=== PATIENT | female | born 1945 | race Caucasian/White ===

== ENCOUNTER 2022-07-05 11:06 | Observation (INO) | payer MEDICARE, SELFPAY ==
[2022-07-05] VITALS (29 sets, daily range): BP systolic 130–183; BP diastolic 52–75; PULSE 59–79; RESP 7–21; TEMP 35.8–36.3; O2SAT 81–100; BMI 27.8
--- NOTE | ~2022-07-05 | XR_ITS ---
EXAMINATION: XR chest 2V DATE: 07/05/2022 11:56 INDICATION: Chest pain. Epigastric abdominal pain. TECHNIQUE: Frontal and lateral views of the chest were obtained. COMPARISON: None. FINDINGS: A calcified left lung nodule and calcified left hilar lymph nodes are consistent with old g ranulomatous disease. No pleural effusion or pneumothorax. The heart size is normal. IMPRESSION: 1. No acute cardiopulmonary disease. Reviewed, dictated and finalized at location A.
--- NOTE | ~2022-07-05 | US_ITS ---
US abdomen limited INDICATION: Acute cholecystitis PROCEDURE: Realtime right upper abdominal ultrasound. COMPARISON: No prior studies for comparison. FINDINGS: The pancreas is normal without focal mass or pancreatic ductal dilation. Liver echotexture is normal without focal mass or intrahepatic biliary dilatation. There is normal directional flow i n the portal vein. There are gallstones. No gallbladder wall thickening or pericholecystic fluid. Common bile duct measu res [address]'s sign. IMPRESSION: 1: Cholelithiasis. Reviewed, dictated and finalized at location A. IMPRESSION: 1: Cholelithiasis.
--- NOTE | ~2022-07-05 | CT_ITS ---
Clinical Indication: Chest pain, abdominal pain CT Scan of the Chest, Abdomen, and Pelvis with Contrast: Technique: Contiguous sections were acquired throughout the chest, abdomen, and pelvis after intraven ous administration of 100 cc of Omnipaque 350. Dose reduction technique was used on this scan by lisa mariscal automated exposure control and iterative reconstruction technique. The dose-length product (DL P) was 527.03 mGy-cm. Findings: There is no evidence of any significant mediastinal, hilar or axillary lymphadenopathy. Calcified sub carinal lymph nodes and left hilar lymph nodes noted. No central pulmonary embolus seen. No aortic a neurysm or dissection seen. There is no evidence of pleural or pericardial effusion. The lungs are clear, aside from minimal dependent atelectatic change. There is mild intrahepatic biliary dilatation. The liver, spleen, pancreas, adrenals and kidneys are otherwise within normal limits. Multiple calcified gallstones are present. No evidence of aortic aneu rysm. There are atherosclerotic calcifications of the aorta. No lymphadenopathy. No bowel obstruction or bowel wall thickening. There is no evidence to suggest acute appendicitis. Urinary bladder is unremarkable. No adnexal mass seen. No ascites. Bilateral L5 pars interarticularis defects are present, with 12 mm anterolisthesis of L5 over S1. Impression: Cholelithiasis. There is a prominent gallstone at the gallbladder neck, but no definite gallbladder w all thickening seen. If there is clinical concern for acute cholecystitis, then consider HIDA scan fo r further evaluation. Mild intrahepatic biliary dilatation, nonspecific. Bilateral L5 pars interarticularis defects, with 12 mm anterolisthesis of L5 over S1. No pulmonary embolus. Clear lungs. Reviewed, dictated and finalized at [facility]. Impression: Cholelithiasis. There is a prominent gallstone at the gallbladder neck, but no definite gallbladder wall thickening seen. If there is clinical concern for acu te cholecystitis, then consider HIDA scan for further evaluation. Mild intrahepatic biliary dilatation, nonspecific. Bilateral L5 pars interarticularis defects, with 12 mm anterolisthesis of L5 ov er S1. No pulmonary embolus. Clear lungs.
--- NOTE | 2022-07-05 11:23 | ECG_ITS ---
Measurements Intervals [place] Rate: 63 P: 47 TN: 159 QRS: 6 QRSD: 101 T: 65 QT: 365 QTc: 375 Interpretive Statements SINUS RHYTHM BORDERLINE ST-T WAVE ABNORMALITY- HIGH LATERAL LEADS BASELINE ARTIFACT- I, AVR, V6 BORDERLINE ECG NO PREVIOUS ECG AVAILABLE FOR COMPARISON Electronically Signed On 07-05-2022 11:58:41 CDT by Gildardo Vargas D.O.
--- NOTE | 2022-07-05 11:37 | ED.ABDPAIN ---
HPI - Abdominal Pain General Chief Complaint: Abdominal Pain Stated Complaint: epigastric/upper adbominal pain Time Seen by Provider: 07/05/22 11:36 Source: patient Mode of arrival: ambulatory Limitations: no limitations History of Present Illness HPI narrative: Patient is a 76-year-old female with a history of hypertension, hyperlipidemia, presenting to the emergency department for evaluation of epigastric pain. Patient reports severe epigastric pain with radiation to the middle back. She denies associated upper chest pain or shortness of breath. No cough or hemoptysis. No nausea or vomiting. Patient states that she awakened acutely at 1 AM with the pain. No recent food indiscretions, patient states that she ate chicken last night after dinner. No diarrhea or constipation. Patient also reports lower abdominal discomfort as well. She denies dysuria or hematuria. Patient denies history of pain such as this in the past. History obtained from patient and at bedside. Related Data Home Medications Medication Instructions Recorded Confirmed calcium carbonate 500 mg calcium 500 mg PO DAILY 03/06/21 07/11/21 (1,250 mg) tablet (Calcium 500) multivitamin 1 tablet PO DAILY 03/06/21 07/11/21 omega 9-gch-goz-fish oil 100 cap PO 03/06/21 07/11/21 mg-160 mg-1,000 mg capsule (Fish Oil) Bacillus coagulans 800 million 1 cell PO .QD 07/11/21 07/11/21 cell tablet (Digestive Advantage Probiotics-Prebiotic) Lactobacillus acidophilus 10 60,000 mmu cells PO DAILY 07/11/21 07/11/21 billion cell capsule (Probiotic) cholecalciferol (vitamin D3) 50 50 mcg PO BID 07/11/21 07/11/21 mcg (2,000 unit) capsule Allergies Allergy/AdvReac Type Severity Reaction Status Date / Time alendronate sodium Allergy Intermediate ACHY Verified 07/05/22 12:33 SWELLING IN ALL AREAS AFFECTED BY ARTHRITIS Review of Systems Review of Systems: CONSTITUTIONAL: Denies fever, chills, or sweats. EYES: Denies visual changes, redness, or discharge. ENT: Denies rhinorrhea, congestion, sore throat, or otalgia. CARDIOVASCULAR: Denies chest pain, palpitations, or edema. RESPIRATORY: Denies cough or dyspnea. GASTROINTESTINAL: Reports upper abdominal pain, denies nausea, vomiting or diarrhea GENITOURINARY: Denies dysuria or hematuria. SKIN: Denies rash or itching. MUSCULOSKELETAL: Reports middle back pain without other joint pain, or myalgia. NEUROLOGIC: Denies headache, numbness, or weakness. [facility] Past Medical History Medical History Age related osteoporosis Bilateral primary osteoarthritis of knee Essential (primary) hypertension Gastro-esophageal reflux disease without esophagitis History of breast cancer 1998, lumpectomy with radiation therapy Impaired fasting glucose Knee effusion, right Left knee DJD Normal colonoscopy 10/05 Repeat 10/15 Pure hypercholesterolemia, unspecified Right knee DJD Surgical History Surgical History History of section, classical History of lumpectomy Lt breast which was benign Family History Family History Father Acute myocardial infarction Depression HLD (hyperlipidemia) Heart disease Other Diabetes mellitus Daughter Diabetes mellitus Breast cancer Other Colon polyp Hypertension Social History Social History Smoking packs per day: 0.5 Smoking cigarettes per day: 10.0 Years smoked: 5 Smoking pack-years: 2.50 Smoking status: Never smoker Second hand tobacco smoke exposure: No Smoking end date: 07/22/82 Additional smoking assessment comments: quit 1974 Alcohol intake: current Drinks per week: 3 Substance use: never Substance use type: does not use Living arrangements: with family Occupation/
[2022-07-05 11:40] LABS: Basophils Percent Auto 0.2 % (0.2-1.2); Eosinophils Percent Auto 0.2 % (0-4.4); Hematocrit 42.8 % (37.0-47.0); Immature Granulocyte Percent A 0.8 % (0-0.5); Lymphocytes Absolute Auto 1.52 K/mm3 (0.9-3.2); Mean Corpuscular Hemoglobin 32.1 pg (26-34); Mean Corpuscular Volume 91.6 fl (80-100); Mean Platelet Volume 8.8 fl (7.4-10.4); Monocytes Absolute Auto 0.7 K/mm3 (0.1-0.6); Monocytes Percent Auto 5.3 % (2.6-8.5); Neutrophils Absolute Auto 10.4 K/mm3 (1.3-6.7); Neutrophils Percent Auto 81.5 % (45.5-73.1); Platelet Count Result 232 k/mm3 (150-375); Red Blood Count 4.67 M/mm3 (4.2-5.4); Red Cell Distribution Width 11.7 % (11.5-14.5); White Blood Count 12.7 K/mm3 (4.5-10.0)
[2022-07-05 11:49] LABS: Alanine Aminotransferase 31 U/L (6-35); Albumin Level 5.4 g/dL (3.5-5.1); Alkaline Phosphatase 75 U/L (38-126); Anion Gap 8 mmol/L (8-16); Aspartate Amino Transferase 27 U/L (14-36); Bilirubin,Total 0.7 mg/dL (0.2-1.3); Blood Urea Nitrogen 15 mg/dL (7-17); Calcium 9.9 mg/dL (8.4-10.2); Carbon Dioxide 32 mmol/L (22-30); Chloride 91 mmol/L (98-107); Estimated CRCL calculation 87 ml/min; Estimated Glomerular Filt Rate > 60; Glucose 143 mg/dL (65-110); Lipase 125 U/L (23-300); Potassium 3.8 mmol/L (3.4-5.0); Sodium 131 mmol/L (137-145)
[2022-07-05 11:51] LABS: INR 0.9
[2022-07-05 11:52] LABS: Partial Thromboplastin Time 27.2 SECONDS (22.3-36.8)
[2022-07-05 12:00] LABS: Troponin I < 0.012 ng/mL (0.000-0.034)
[2022-07-05] MEDS: SODIUM CHLORIDE 0.9% IV 1,000 ML 999 ML IV CONT (12:33)
[2022-07-05] MEDS: ONDANSETRON INJ 4 MG/2 ML VIAL IV PUSH (12:34)
[2022-07-05] MEDS: MAG HYDROX/AL HYDROX/SIMETH 30 ML UDC PO (12:35)
[2022-07-05] MEDS: FAMOTIDINE 20 MG/2 ML VIAL IV PUSH (12:35)
[2022-07-05] MEDS: MORPHINE SULFATE (*CRX) 4 MG/ML INJ IV PUSH (12:35)
[2022-07-05 13:00] LABS: Lactic Acid Reflex 0.6 mmol/L (0.7-2.0)
--- NOTE | 2022-07-05 13:17 | PC.NURSE ---
Pt O2 dropping into the 80s. Placed pt on 2L NC at this time
--- NOTE | 2022-07-05 14:58 | PM.IMHP ---
H&P: HPI History of Present Illness Date/Time: 07/05/22 14:58 Chief Complaint: Epigastric abdominal pain Narrative: This is a 76-year-old woman with a history of hypertension, hyperlipidemia, and GERD, who presented to the ER today with complaints of epigastric abdominal pain starting early this morning. She reports eating fried chicken last night for dinner and went to bed feeling in her normal state of health. She woke up suddenly from sleep around 1:00 a.m. with epigastric abdominal pain. She does have a history of acid reflux and thought this could be the cause of her pain, so she tried taking some of her eamy-djs-tyaivbt medication, but had no relief. Her abdominal pain became more severe and started to radiated across her entire upper abdomen underneath her ribs bilaterally. She denies ever having this pain in the past. She had a small bowel movement without relief in her pain. She tried to make herself vomit to see if this would help, but again had no relief. Due to the unrelenting pain, she presented to the ER today for evaluation. [place] [id number], normal LFTs, negative troponin, and labs were otherwise unremarkable. EKG without any ischemic changes. Chest x-ray negative. CT with contrast of the chest abdomen and pelvis was subsequently ordered and showed cholelithiasis with a prominent gallstone at the gallbladder neck but no definite gallbladder wall thickening. Also noted was mild intrahepatic biliary dilation, no pulmonary embolism. Our service was consulted by the ED physician. She is now seen in the ER. She reports having some improvement in her abdominal pain after receiving the IV morphine in the ER, but her pain has began to slowly intensify again as the medication has worn off. No other complaints at this time. She has had 3 previous deliveries and a tubal ligation in the past. No other abdominal surgeries. She denies ever having pain like this in the past or having any known issues with her gallbladder. Review of Systems Review of Systems: All systems reviewed & are unremarkable except as noted in HPI and below Constitutional: Constitutional: Reports no additional constitutional complaints, Denies chills, Denies fatigue, Denies fever(s) and Denies poor appetite Eyes: Eyes: Reports no additional eye complaints ENT: Reports system reviewed and no additional complaints, except as documented and Denies dizziness Cardiovascular: Cardiovascular: Reports no additional cardiovascular complaints, Denies chest pain and Denies leg edema Respiratory: Respiratory: Reports no additional respiratory complaints, Denies cough and Denies dyspnea Gastrointestinal: Gastrointestinal: Reports as per HPI, Reports no additional gastrointestinal complaints, Reports abdominal pain, Denies change in bowel habits, Denies change in stool character, Denies constipation, Denies diarrhea, Denies nausea and Denies vomiting Genitourinary: Genitourinary: Reports no additional female genitourinary complaints and Denies dysuria Musculoskeletal: Musculoskeletal: Reports no additional musculoskeletal complaints, Denies abnormal gait and Denies joint swelling Integumentary/Breasts: Skin/Breast: Reports system reviewed and no additional complaints, except as docu Neurologic: Reports system reviewed and no additional complaints, except as documented, Denies headache(s), Denies focal weakness, Denies numbness and Denies tingling PMFSH Past Medical History Medical History Age related osteoporosis Bilateral primary osteoarthritis of knee Essential (primary) hypertension Gastro-esophageal reflux disease without esophagitis History of breast cancer 1998, lumpectomy with radiation therapy Impaired fasting glucose Knee effusion, right Left knee DJD Normal colonoscopy 10/05 Repeat 10/15 Pure hypercholesterolemia, unspecified Right knee DJD Surgical Hist
[2022-07-05 15:09] LABS: Troponin I < 0.012 ng/mL (0.000-0.034)
[2022-07-05] MEDS: LACTATED RINGERS 1,000 ML 125 ML IV CONT (16:04)
[2022-07-05] MEDS: PIPERACILLN/TAZ 3.375GM/NS50ML 3.375 GM/50 ML BAG IVPB ×2 (16:19→23:19)
[2022-07-05 18:43] LABS: Troponin I < 0.012 ng/mL (0.000-0.034)
[2022-07-06] MEDS: PIPERACILLN/TAZ 3.375GM/NS50ML 3.375 GM/50 ML BAG IVPB ×2 (01:03→10:01)
[2022-07-06] MEDS: LACTATED RINGERS 1,000 ML 125 ML IV CONT (05:24)
[2022-07-06 06:00] VITALS: BP 151/89; PULSE 85; RESP 16; TEMP 35.9; O2SAT 97
[2022-07-06 07:03] LABS: Basophils Percent Auto 0.6 % (0.2-1.2); Eosinophils Percent Auto 0.6 % (0-4.4); Hemoglobin 13.4 g/dL (12.0-15.0); Immature Granulocyte Absolute 0.01 K/mm3 (0.00-0.031); Immature Granulocyte Percent A 0.2 % (0-0.5); Lymphocytes Absolute Auto 2.38 K/mm3 (0.9-3.2); Lymphocytes Percent Auto 37.8 % (18.3-44.2); Mean Corpuscular HGB Conc 34.4 g/dl (32-36); Mean Corpuscular Hemoglobin 32.5 pg (26-34); Mean Corpuscular Volume 94.7 fl (80-100); Mean Platelet Volume 8.9 fl (7.4-10.4); Monocytes Absolute Auto 0.5 K/mm3 (0.1-0.6); Monocytes Percent Auto 7.6 % (2.6-8.5); Neutrophils Absolute Auto 3.3 K/mm3 (1.3-6.7); Neutrophils Percent Auto 53.2 % (45.5-73.1); Platelet Count Result 196 k/mm3 (150-375); Red Blood Count 4.12 M/mm3 (4.2-5.4); Red Cell Distribution Width 11.8 % (11.5-14.5); White Blood Count 6.3 K/mm3 (4.5-10.0)
[2022-07-06 07:33] LABS: Alanine Aminotransferase 24 U/L (6-35); Albumin Level 4.1 g/dL (3.5-5.1); Alkaline Phosphatase 49 U/L (38-126); Anion Gap 3 mmol/L (8-16); Aspartate Amino Transferase 20 U/L (14-36); Bilirubin,Total 0.7 mg/dL (0.2-1.3); Blood Urea Nitrogen 9 mg/dL (7-17); Carbon Dioxide 33 mmol/L (22-30); Chloride 97 mmol/L (98-107); Estimated CRCL calculation 71 ml/min; Estimated Glomerular Filt Rate > 60; Glucose 91 mg/dL (65-110); Potassium 3.9 mmol/L (3.4-5.0); Sodium 133 mmol/L (137-145)
--- NOTE | 2022-07-06 12:16 | PM.DS ---
DS: Admitting Diagnosis Discharge Date 07/06/2022 Admitting Diagnosis Cholecystitis with gallstones DS: Discharge Diagnosis Discharge Diagnosis (1) Cholelithiasis with chronic cholecystitis: Code(s): K80.10 - Calculus of gallbladder with chronic cholecystitis without obstruction Status: Acute DS: Summary Hospital Course Hospital Course: Patient ate fried chicken for supper night before last and then was awakened at 1:00 a.m. in the morning on the day of admission with excruciating epigastric abdominal pain that would not resolve. She eventually came to the emergency room. Her liver function tests were unremarkable. Imaging showed gallstones. She initially improved in the ER but then her pain returned. She was admitted for observation. Fortunately her pain then resolved. She had both an ultrasound and a CT scan that showed gallstones but no signs of acute cholecystitis. She was observed overnight and was tolerating a low-fat diet. She is pain-free today and is discharged on a low-fat diet with plans for laparoscopic cholecystectomy to be done as an outpatient in the future. Status at Discharge Functional status at discharge: independent ambulation Overall status at discharge: patient is progressing back to baseline Time Spent with Patient Time attestation: Total time spent providing and/or coordinating discharge services: Time spent: Less than 30 minutes Exam Const: General: comfortable and no acute distress; No confusion Orientation/consciousness: patient oriented x3 and No confusion GI: Inspection: non-distended and scaphoid GI Palp: Yes Soft to palpation, No Tenderness to palpation present (GI), No Guarding due to palpation present (GI) and No Rebound tenderness present Auscultation: normal bowel sounds Neuro: General: patient oriented x3, no focal motor deficits and No confusion Extrem: General: no calf tenderness and no edema Psych: Affect: normal affect Insight: Good insight present (Psych) Judgement: Good judgement present (Psych) DS: Data Data Completed and Pending Labs on day of discharge: Labs from last 24 hours 07/06/22 07/06/22 07/05/22 06:50 06:50 17:44 WBC 6.3 RBC 4.12 L Hgb 13.4 Hct 39.0 MCV 94.7 MCH 32.5 MCHC 34.4 RDW 11.8 Plt Count 196 MPV 8.9 Immature Gran % (Auto) 0.2 Neut % (Auto) 53.2 Lymph % (Auto) 37.8 Williamson % (Auto) 7.6 Eos % (Auto) 0.6 Baso % (Auto) 0.6 Lymph # (Auto) 2.38 Williamson # (Auto) 0.5 Eos # (Auto) 0.0 Baso # (Auto) 0.0 Abs Immat Gran (auto) 0.01 Absolute Neuts (auto) 3.3 Absolute Nucleated RBC 0.0 Nucleated RBC % 0.0 Sodium 133 L Potassium 3.9 Chloride 97 L Carbon Dioxide 33 H Anion Gap 3 L BUN 9 D Creatinine 0.50 L Estim Creat Clear Calc 71 Estimated GFR > 60 Glucose 91 Lactic Acid Calcium 9.0 Total Bilirubin 0.7 AST 20 ALT 24 Alkaline Phosphatase 49 Troponin I < 0.012 Total Protein 6.0 L Albumin 4.1 07/05/22 07/05/22 14:40 12:47 WBC RBC Hgb Hct MCV MCH MCHC RDW Plt Count MPV Immature Gran % (Auto) Neut % (Auto) Lymph % (Auto) Williamson % (Auto) Eos % (Auto) Baso % (Auto) Lymph # (Auto) Williamson # (Auto) Eos # (Auto) Baso # (Auto) Abs Immat Gran (auto) Absolute Neuts (auto) Absolute Nucleated RBC Nucleated RBC % Sodium Potassium Chloride Carbon Dioxide Anion Gap BUN Creatinine Estim Creat Clear Calc Estimated GFR Glucose Lactic Acid 0.6 L Calcium Total Bilirubin AST ALT Alkaline Phosphatase Troponin I < 0.012 Total Protein Albumin Discharge Plan Discharge Attending physician on discharge: Marco Zaragoza Discharging Clinician: Marco Zaragoza Anticipated Discharge Date/Time: 07/06/22 12:20 Patient Disposition: Home, Self-Care Activity: may shower and as tolerated Diet: low fat
== END 2022-07-06 13:40 | disposition home or self-care (01) ==
LOC: ANHED 15:47 → ANH3MEDSUR 16:48
PROVIDERS: Nurse Practitioner Family; Admitting Provider Surgery; Emergency Provider Emergency Medicine; PCP Family Medicine Adolescent Medicine; Visit Provider Surgery
DX: K80.10 Calculus of gallbladder with chronic cholecystitis without obstruction (principal); K21.9 Gastro-esophageal reflux disease without esophagitis; I10 Essential (primary) hypertension; E78.5 Hyperlipidemia, unspecified; M81.0 Age-related osteoporosis without current pathological fracture; R07.9 Chest pain, unspecified; D72.829 Elevated white blood cell count, unspecified; R73.01 Impaired fasting glucose; F10.90 Alcohol use, unspecified, uncomplicated; Z87.891 Personal history of nicotine dependence; Z85.3 Personal history of malignant neoplasm of breast; Z79.899 Other long term (current) drug therapy; Z82.49 Family history of ischemic heart disease and other diseases of the circulatory system; Z80.3 Family history of malignant neoplasm of breast; Z83.438 Family history of other disorder of lipoprotein metabolism and other lipidemia
CPT/HCPCS: 36415; 71046; 71260; 74177; 76705; 80053; 83605; 83690; 84484; 85025; 85610; 85730; 93005; 96361; 96365; 96366; 96367; 96375; 99285; A9270; G0378; J0131; J2270; J2405; J2543; J7030; J7120; Q9967

== ENCOUNTER 2022-08-06 07:52 | Outpatient (CLI) | payer MEDICARE, SELFPAY ==
[2022-08-06 08:37] LABS: Alanine Aminotransferase 43 U/L (6-35); Albumin Level 4.6 g/dL (3.5-5.1); Alkaline Phosphatase 76 U/L (38-126); Amylase 73 U/L (30-110); Aspartate Amino Transferase 38 U/L (14-36); Bilirubin,Total 0.5 mg/dL (0.2-1.3); Lipase 45 U/L (23-300)
== END 2022-08-06 07:53 | disposition home or self-care (01) ==
LOC: ANHSURGERY 07:57
PROVIDERS: PCP Family Medicine Adolescent Medicine; Visit Provider Surgery
DX: Z01.818 Encounter for other preprocedural examination (principal); K80.10 Calculus of gallbladder with chronic cholecystitis without obstruction
CPT/HCPCS: 36415; 80076; 82150; 83690; 86850; 86900; 86901

== ENCOUNTER 2022-08-08 01:12 | Day surgery (SDC) | payer MEDICARE, SELFPAY ==
--- NOTE | 2022-08-02 13:17 | PC.NURSE ---
Report to the Outpatient Waiting Room, entrance under the green pavilion located off [facility], at time __0800 on date __08/08/22 . Planned Procedure Time: _1000 . Time changes happen often and if your time is changed the preop area will call you the afternoon before. - You and your visitor will be asked to self-screen and do not enter if you have any COVID symptoms. - A mask is optional within the hospital at this time. Patients may have clear liquids (water, carbonated beverages, clear teas, apple juice) until 3 hours prior to surgery with a maximum of 20 ounces. - No food from midnight until time of surgery - Infants may have breast milk until 4 hours before surgery, infant formula 6 hours prior to surgery. - Children will be allowed to drink immediately following surgery. If applicable, please bring a bottle or sippy cup to assist with drinking. Juice, water, soda, and popsicles are readily available. For infants on formula, please bring formula the day of surgery. Pacifiers are allowed. Take the following medications with a SIP of water the morning of surgery: ___AMLODIPINE,METOPROLOL DO NOT STOP ANY OF YOUR OTHER PRESCRIPTION MEDICATIONS PRIOR TO SURGERY ?EXCEPT THE FOLLOWING Medications to discontinue per physician __ALL VITAMINS/SUPPLEMENTS 3 DAYS PRE OP .LAST DOSE 08/04/22 hibiclens shower morning of surgery Please no make-up, nail slovenian, hairspray, perfume, deodorant, or body powder the day of surgery. No jewelry (including any body piercings) or valuables the day of surgery, leave them at home. Please take a shower or bath the night before, or the morning of, surgery with an antibacterial soap. Wear comfortable, loose fitting clothing. Children are encouraged to wear pajamas. - Jewelry must be removed prior to entering the operating room. Rings and piercings that are not removed may be cut off. - The hospital will not accept responsibility for valuables. - Please leave all valuables, including medications, at home the day of surgery. If you are going home after surgery, a licensed stake driver must drive you home. - NO public transportation without another adult if you receive anesthesia. - We recommend that an adult stay with you for 24 hours following discharge. - We also recommend that you do not drive, make important decision, drink alcoholic beverages, or take any drugs that were not prescribed by your health care provider for at least 24 hours after your discharge time. For Pediatric surgeries, we recommend two adults accompany the child home. Follow any additional instructions given to you from your surgeon. If you or anyone in your household have experienced Covid symptoms in the past week, please notify your surgeon or the nurse liaison at the phone number below for possible testing. Telephone instructions given to ___PATIENT and asked if any additional questions and then verbalized understanding. Patient advised to call surgeon office or pre surgery nurse liaison [phone] if any additional questions.
[2022-08-02 13:29] VITALS: BMI 27.6
--- NOTE | 2022-08-06 16:47 | PM.SD2 ---
Same Day Admit/Disch: HPI History of Present Illness Chief complaint: chronic cholecyst with cholithliasis Narrative: Kortney Mota is a 76 year old female who developed excruciating epigastric abdominal pain July 05. She had had a fatty meal for supper the night before, fried chicken. She came to the emergency room and was noted to have normal [place] [id number]. She was still having severe pain and was admitted for observation. Her pain resolved. Both by CT scan and ultrasound she had gallstones but no evidence of acute cholecystitis. On her preoperative testing, her AST and ALT were slightly elevated. She is taken to surgery now for laparoscopic cholecystectomy with possible intraoperative cholangiogram. [facility] Past Medical History Medical History (Updated 08/08/22 @ 11:18 by Marco Zaragoza MD) Age related osteoporosis Bilateral primary osteoarthritis of knee Essential (primary) hypertension Gastro-esophageal reflux disease without esophagitis History of breast cancer 1998, lumpectomy with radiation therapy Impaired fasting glucose Knee effusion, right Normal colonoscopy 10/05 Repeat 10/15 Pure hypercholesterolemia, unspecified Surgical History Surgical History History of section, classical History of lumpectomy Lt breast which was benign Family History Family History Father Acute myocardial infarction Depression HLD (hyperlipidemia) Heart disease Other Diabetes mellitus Daughter Diabetes mellitus Breast cancer Other Colon polyp Hypertension Social History Social History Smoking packs per day: 1 Smoking cigarettes per day: 20.0 Years smoked: 13 Smoking pack-years: 13.00 Smoking status: Former smoker Tobacco type: cigarettes Second hand tobacco smoke exposure: No Smoking end date: 04/22/82 Additional smoking assessment comments: quit 1975 Alcohol intake: current Drinks per week: 2 Substance use: never Substance use type: does not use Lack of Transportation: No Lack of Food: Never True Current Housing: I Have Housing Concerned About Future Housing: No Difficulty Paying Gas/Electric Bills: No Difficulty Paying for Meds: No Currently Unemployed: No Education: Master's Degree or Higher Difficulty w/ Childcare or Family Care: No Living arrangements: with family Occupation/Education: retired Gender identity (if verbalized by the patient): Female Sexual Orientation (if Verbalized by the Patient): Straight or Heterosexual Spiritual care concerns: No Agree to blood products: Yes Same Day Admit/Disch: Med Pre-admit Medications Home Medications Medication Instructions Recorded Confirmed Type calcium carbonate 500 mg calcium 500 mg PO DAILY 03/06/21 08/08/22 History (1,250 mg) tablet (Calcium 500) multivitamin 1 tablet PO DAILY 03/06/21 08/08/22 History omega 3-stn-cjf-fish oil 100 1 cap PO DAILY 03/06/21 08/08/22 History mg-160 mg-1,000 mg capsule (Fish Oil) Lactobacillus acidophilus 10 60,000 mmu cells PO DAILY 07/11/21 08/08/22 History billion cell capsule (Probiotic) amlodipine 5 mg tablet 5 mg PO DAILY #90 tabs 07/11/21 08/08/22 Rx cholecalciferol (vitamin D3) 50 50 mcg PO BID 07/11/21 08/08/22 History mcg (2,000 unit) capsule esomeprazole magnesium 40 mg 40 mg PO DAILY #90 caps 07/11/21 08/08/22 Rx capsule,delayed release metoprolol succinate 50 mg 50 mg PO DAILY #90 tabs 07/11/21 08/08/22 Rx tablet,extended release 24 hr atorvastatin 40 mg tablet 40 mg PO HS 08/02/22 08/08/22 History hydrochlorothiazide 25 mg tablet 25 mg PO DAILY #90 tabs 08/06/22 08/08/22 Rx ibuprofen 600 mg tablet 600 mg PO Q6H PRN pain #14 tabs 08/08/22 Rx oxycodone-acetaminophen 5 mg-325 0.5 - 1 tablet PO Q6H PRN pain #10 08/08/22
[2022-08-08] VITALS (8 sets, daily range): BP systolic 114–150; BP diastolic 47–76; PULSE 48–79; RESP 12–18; TEMP 36.3–36.6; O2SAT 95–100
[2022-08-08] MEDS: LACTATED RINGERS 1,000 ML 30 ML IV CONT ×2 (08:30→11:20)
[2022-08-08] MEDS: KETOROLAC 15 MG/ML VIAL (*BKC) IV PUSH (08:34)
[2022-08-08] MEDS: ACETAMINOPHEN 500 MG TABLET 1000 MG PO (08:34)
[2022-08-08 08:51] LABS: Alanine Aminotransferase 33 U/L (6-35); Albumin Level 4.7 g/dL (3.5-5.1); Alkaline Phosphatase 74 U/L (38-126); Aspartate Amino Transferase 29 U/L (14-36); Bilirubin,Total 0.6 mg/dL (0.2-1.3)
--- NOTE | 2022-08-08 09:36 | WPDANESEPPF ---
Anes - Initial Pre Proc Eval Procedure: Operation Date: 08/08/22 10:00 Proposed Procedures p Laparoscopic Cholecystectomy with Possible Intraoperative Cholangiogram - Marco Zaragoza MD Date/Time: 08/08/22 09:36 Surgeon: Marco Zaragoza MD Pre Op Diagnosis: chronic cholecyst with cholithliasis Patient Data Age: 76 Gender: F Height: 1.57 m Weight: 68.5 kg Last Vital Signs Temp 97.3 F L 08/08/22 08:04 Pulse 59 L 08/08/22 08:04 Resp 18 08/08/22 08:04 BP 150/76 H 08/08/22 08:04 Pulse Ox 99 08/08/22 08:04 O2 Del Method Room Air 08/08/22 08:04 Allergies Allergy/AdvReac Type Severity Reaction Status Date / Time alendronate sodium Allergy Intermediate ACHY Verified 08/08/22 09:13 SWELLING IN ALL AREAS AFFECTED BY ARTHRITIS Home Medications Medication Instructions Recorded Confirmed Type calcium carbonate 500 mg calcium 500 mg PO DAILY 03/06/21 08/08/22 History (1,250 mg) tablet (Calcium 500) multivitamin 1 tablet PO DAILY 03/06/21 08/08/22 History omega 6-lgs-ubv-fish oil 100 1 cap PO DAILY 03/06/21 08/08/22 History mg-160 mg-1,000 mg capsule (Fish Oil) Lactobacillus acidophilus 10 60,000 mmu cells PO DAILY 07/11/21 08/08/22 History billion cell capsule (Probiotic) amlodipine 5 mg tablet 5 mg PO DAILY #90 tabs 07/11/21 08/08/22 Rx cholecalciferol (vitamin D3) 50 50 mcg PO BID 07/11/21 08/08/22 History mcg (2,000 unit) capsule esomeprazole magnesium 40 mg 40 mg PO DAILY #90 caps 07/11/21 08/08/22 Rx capsule,delayed release metoprolol succinate 50 mg 50 mg PO DAILY #90 tabs 07/11/21 08/08/22 Rx tablet,extended release 24 hr atorvastatin 40 mg tablet 40 mg PO HS 08/02/22 08/08/22 History hydrochlorothiazide 25 mg tablet 25 mg PO DAILY #90 tabs 08/06/22 08/08/22 Rx Laboratory Tests 08/08/22 08:22 Total Bilirubin 0.6 mg/dL mg/dL (0.2-1.3) Direct Bilirubin 0.0 mg/dL mg/dL (0-0.3) AST 29 U/L U/L (14-36) ALT 33 U/L U/L (6-35) Alkaline Phosphatase 74 U/L U/L (38-126) Total Protein 7.0 g/dL g/dL (6.3-8.2) Albumin 4.7 g/dL g/dL (3.5-5.1) Patient hx anesthesia problems: none Family hx anesthesia problems: none Results Review: All pre-operative results and documents have been reviewed as part of the pre-operative evaluation. [facility]LY [facility] Past Medical History Medical History (Updated 07/19/22 @ 06:45 by Rm Rothman MD) Age related osteoporosis Bilateral primary osteoarthritis of knee Essential (primary) hypertension Gastro-esophageal reflux disease without esophagitis History of breast cancer 1998, lumpectomy with radiation therapy Impaired fasting glucose Knee effusion, right Normal colonoscopy 10/05 Repeat 10/15 Pure hypercholesterolemia, unspecified Surgical History Surgical History History of section, classical History of lumpectomy Lt breast which was benign Family History Family History Father Acute myocardial infarction Depression HLD (hyperlipidemia) Heart disease Other Diabetes mellitus Daughter Diabetes mellitus Breast cancer Other Colon polyp Hypertension Social History Social History Smoking packs per day: 1 Smoking cigarettes per day: 20.0 Years smoked: 13 Smoking pack-years: 13.00 Smoking status: Former smoker Tobacco type: cigarettes Second hand tobacco smoke exposure: No Smoking end date: 04/22/82 Additional smoking assessment comments: quit 1975 Alcohol intake: current Drinks per week: 2 Substance use: never Substance use type: does not use Lack of Transportation: No Lack of Food: Never True Current Housing: I Have Housing Concerned About Future Housing: No Difficulty Paying Gas/Electric Bills: No Difficulty P
--- NOTE | 2022-08-08 09:50 | WPDHPUPDATE1 ---
History and Physical Update Update Date/Time: 08/08/22 09:50 History and Physical has been reviewed, including an updated exam of the patient. There are NO changes in the patient's condition. Risks, benefits, and alternatives have been discussed and questions answered. Patient agrees to proceed with procedure.
[2022-08-08] MEDS: BUPIVACAINE/EPINEPHRINE 0.5% 50 ML VIAL 30 ML INFILTRATE (10:09)
[2022-08-08] MEDS: ceFAZolin 2 GM/D5W 50 ML 2 GM/50 ML BAG IVPB (10:09)
--- NOTE | 2022-08-08 11:07 | W.PM.PROC2 ---
Procedure Note - Detailed Date of Procedure 08/08/22 Pre-op Diagnosis chronic cholecyst with cholithliasis Post-op Diagnosis Same Procedure Performed Laparoscopic cholecystectomy Surgeon Marco Zaragoza MD Sales Service Technician Anneliese CARLSON STRAIGHT CUTTER MACHINE Anesthesia General and Local (0.5% Marcaine with epinephrine) Indications Patient had severe epigastric pain after a fatty meal. Imaging showed gallstones. Her preop testing showed barely elevated LFTs. These were only the AST and ALT. None of her previous LFTs were elevated. She had liver function tests repeated on the day of surgery and they were again normal. Patient had not had any symptoms of pain or other abdominal issues. Findings Chronic inflammation, gallbladder was packed with gallstones. Liver was normal. No biliary ductal dilatation. Description of Procedure Patient was taken to surgery and induced into general anesthesia. The abdomen is prepped and draped. Trocars were placed in the usual fashion using [employer] optical trocars and a 5 mm camera. The patient was placed in reverse Trendelenburg. The gallbladder was retracted anterosuperiorly. Dissection was carried out in the cholecystohepatic triangle. The cystic duct and cystic artery were dissected out very clearly. The cystic artery was quite anterior, suggesting an SMA origin. Gallbladder was dissected off the liver at its lower 3rd. Critical view was achieved. I securely clipped and divided the cystic artery. I then dissected out the cystic duct a bit more. The cystic duct was then securely clipped and divided. The gallbladder was then further dissected free of its remaining attachments to the liver. Once freed, the gallbladder was placed in an Endo-Catch bag and retrieved through the 10 11 epigastric trocar site. The epigastric trocar was then replaced. We reviewed the gallbladder fossa and the right upper quadrant. There was no evidence of bleeding or bile leakage. All looked very good. We evacuated CO2 and removed the trocar sleeves. The fascia was closed at the epigastric trocar site with an 0 Vicryl suture. All skin wounds were closed with subcuticular 4-0 Monocryl skin suture. Wounds were dressed with Exofin surgical adhesive. The patient was awakened and taken to recovery in good condition. Sponge and needle counts were correct x2. Estimated Blood Loss -5 Drains No Packing No Pathology Yes (Gallbladder) Complications No immediate complications Condition Stable Disposition PACU [facility] Billing Surgery - Charge Forward: Surgery Billing (Laparoscopic cholecystectomy)
== END 2022-08-08 13:30 | disposition home or self-care (01) ==
PROVIDERS: PCP Family Medicine Adolescent Medicine; Visit Provider Surgery
PROC: 0FT44ZZ Resection of Gallbladder, Percutaneous Endoscopic Approach (ICD-10-PCS; CPT 47562; principal; 2022-08-08 10:00)
DX: K80.10 Calculus of gallbladder with chronic cholecystitis without obstruction (principal); I10 Essential (primary) hypertension; E78.00 Pure hypercholesterolemia, unspecified; M81.0 Age-related osteoporosis without current pathological fracture; K21.9 Gastro-esophageal reflux disease without esophagitis; Z85.3 Personal history of malignant neoplasm of breast; Z92.3 Personal history of irradiation; Z87.891 Personal history of nicotine dependence
CPT/HCPCS: 47562; 36415; 80076; 82150; 83690; 86850; 86900; 86901; 88304; A9270; C1713; J0690; J1100; J1170; J1885; J2405; J2704; J2710; J3010; J7120

== ENCOUNTER 2024-09-24 10:11 | Outpatient (CLI) | payer MEDICARE, SELFPAY ==
--- NOTE | 2024-09-24 10:26 | ECG_ITS ---
Test Date: 2024-09-24 10:47:31 Measurements Intervals [place] Rate: 55 P: 42 IA: 171 QRS: 2 QRSD: 98 T: 39 QT: 387 QTc: 370 Interpretive Statements SINUS BRADYCARDIA BORDERLINE ECG No previous ECG available for comparison Electronically Signed On 09-24-2024 11:08:41 CDT by Gildardo Vargas D.O.
[2024-09-24 10:54] LABS: Basophils Absolute Auto 0.1 K/mm3 (0.0-0.1); Basophils Percent Auto 0.8 % (0.2-1.2); Eosinophils Absolute Auto 0.2 K/mm3 (0-0.3); Eosinophils Percent Auto 2.4 % (0-4.4); Hemoglobin 14.1 g/dL (12.0-15.0); Immature Granulocyte Absolute 0.03 K/mm3 (0.00-0.031); Immature Granulocyte Percent A 0.4 % (0-0.5); Lymphocytes Absolute Auto 2.29 K/mm3 (0.9-3.2); Lymphocytes Percent Auto 31.8 % (18.3-44.2); Mean Corpuscular HGB Conc 33.6 g/dl (32-36); Mean Corpuscular Hemoglobin 31.8 pg (26-34); Mean Corpuscular Volume 94.8 fl (80-100); Mean Platelet Volume 9.1 fl (7.4-10.4); Monocytes Absolute Auto 0.4 K/mm3 (0.1-0.6); Monocytes Percent Auto 5.4 % (2.6-8.5); Neutrophils Absolute Auto 4.3 K/mm3 (1.3-6.7); Neutrophils Percent Auto 59.2 % (45.5-73.1); Platelet Count Result 241 k/mm3 (150-375); Red Blood Count 4.43 M/mm3 (4.2-5.4); Red Cell Distribution Width 11.6 % (11.5-14.5); White Blood Count 7.2 K/mm3 (4.5-10.0)
--- OUTSIDE RECORDS SUMMARY | 2024-09-24 11:08 | XMS_ITS | Referral Summary ---
Author Organization [facility] Address [address] [place] [address] Care Team Providers Care Installer Inspector Final Name Role Phone Rm Rothman MD Primary Care Prov ider Allergies Active Allergy Reactions Criticality Noted Date Comments Alendronate Unknown 11/18/2017 Medications amLODIPine (NORVASC) 5 mg tablet TK 1 T PO QD FOR BP 2 09/11/2017 Active aspirin 81 mg tablet 08/12/2007 Active calcium carbonate-vitami n D3 1500 mg (600 mg elemental) -200 units per tablet 08/12/2007 Ac tive hydroCHLOROthiaz ajit (HYDRODIURIL) 25 mg tablet TK 1 T PO QD 0 10/05/2017 Active LOVASTATIN ORAL TK 1 AND 1/2 T PO QD 9 10/27/2017 Active metoprolol XL (TOPROL-XL) 50 mg 24 hr tablet TK 1 T PO QD 9 11/11/[address] (NexIUM) 20 mg capsule 08/12/2007 Active multivit-mineral s/ferrous fum (MULTI VITAMIN ORAL) Take by mouth. Active docosahexaenoic acid-epa 120-180 mg capsule Take by mouth. Active predniSONE (DELTASONE) 10 mg tablet 0 10/29/2018 Active triamcinolone (KENALOG) 0.1 % cream MILADYS AA BID 0 10/29/2018 Active atorvastatin (LIPITOR) 40 mg tablet Take 1 tablet (40 mg total) by mouth daily 12/31/2021 Active Active Problems Problem Noted Date Diagnosed Date HX: breast cancer 12/11/2018 History of breast cancer 11/18/2017 Social History Tobacco Use Types Packs/Day Years Used Date Smoking Tobacco: Former Personal Safety Answer Date Recorded Getting School Help Needed Not on file 06/15 Comments No Sex and Gender Information Value Date Recorded Sex Assigned at Not on file Legal Sex Female 2:01 AM PROFESSIONAL ATHLETES COACH Gender Identity Not on file Sexual Orientation Not on file Last Filed Vital Signs Vital Sign Reading Time Taken Comments Blood Pressure 152/75 03/06/2022 10:27 AM PROFESSIONAL ATHLETES COACH Pulse 62 03/06/2022 10:27 AM PROFESSIONAL ATHLETES COACH Temperature 36.7 C (98 F) 03/06/2022 10:27 AM PROFESSIONAL ATHLETES COACH Respiratory Rate 18 03/06/2022 10:2 7 AM PROFESSIONAL ATHLETES COACH Oxygen Saturation 97% 03/06/2022 10: 27 AM PROFESSIONAL ATHLETES COACH Inhaled Oxygen Concentration - - Weight 71.1 kg (156 lb 12.8 oz) 022 10:27 AM PROFESSIONAL ATHLETES COACH Height 157.5 cm (5' 2) 03/06/2022 10:2 7 AM PROFESSIONAL ATHLETES COACH Body Mass Index 28.68 03/06/2022 10:27 AM PROFESSIONAL ATHLETES COACH Plan of Treatment Not on file Insurance [facility] MEDICARE ADVANTAGE [facility] MEDICARE ADVANTAGE [employer] MEDICARE ADVANTAGE Care Teams Installer Inspector Final Relationship Specialty Start Date End Date Rm Rothman MD [address] [place] [address] PCP - General 11/18/17
--- OUTSIDE RECORDS SUMMARY | 2024-09-24 11:08 | XMS_ITS | Clinical Summary ---
Author Organization [facility] Address [address] [place] [address] Care Team Providers Care Lens Blank Gauger Name Role Phone Rm Rothman MD Primary [...] cancer 12/11/2018 History of breast cancer 11/18/2017 Surgical History Surgery Date Site/Laterality Comments BREAST BIOPSY 04/22/1998 Left BREAST LUMPECTOMY 04/22/1998 Left Medical History Medical History Date Comments History of radiation therapy 04/22/1998 LEF T Breast cancer (HCC) 04/22/1998 Family History Medical History Relation Name Comments Breast cancer Daughter Breast cancer Paternal Grandmother Endometrial cancer Neg Hx Ovarian cancer Neg Hx Thyroid cancer Neg Hx Relation Name Status Comments Daughter Paternal Grandmother Social History Tobacco Use Types Packs/Day Years Used Date Smoking Tobacco: Former Personal Safety Answer Date Recorded Getting School Help Needed Not on file 06/15 Comments No Sex and Gender Information Value Date Recorded Sex Assigned at Not on file Legal Sex Female 2:01 AM MICROBIOLOGY LAB TECHNICIAN Gender Identity Not on file Sexual Orientation Not on file Obstetrics History Para Term AB IAB SAB Ectopic Multiple Livin g Live Births 3 2 2 Date Outcome GA Total Labor Labor//3rd Weight Sex Type Anes PTL Bety A1 A5 Name Clin Term Term Last Filed Vital Signs Vital Sign Reading Time Taken Comments Blood Pressure 152/75 03/06/2022 10:27 AM MICROBIOLOGY LAB TECHNICIAN Pulse 62 03/06/2022 10:27 AM MICROBIOLOGY LAB TECHNICIAN Temperature 36.7 C (98 F) 03/06/2022 10:27 AM MICROBIOLOGY LAB TECHNICIAN Respiratory Rate 18 03/06/2022 10:2 7 AM MICROBIOLOGY LAB TECHNICIAN Oxygen Saturation 97% 03/06/2022 10: 27 AM MICROBIOLOGY LAB TECHNICIAN Inhaled Oxygen Concentration - - Weight 71.1 kg (156 lb 12.8 oz) 022 10:27 AM MICROBIOLOGY LAB TECHNICIAN Height 157.5 cm (5' 2) 03/06/2022 10:2 7 AM MICROBIOLOGY LAB TECHNICIAN Body Mass Index 28.68 03/06/2022 10:27 AM MICROBIOLOGY LAB TECHNICIAN Plan of Treatment Health Maintenance Due Date Last Done Comments Depression Screening 1944 Fall Risk Assessment 1944 Osteoporosis Screening-Bone Density Scan 1944 DTaP/Tdap/Td Vaccine (1 - Tdap) 08/21/1955 Hepatitis B Screening 1962 Pneumococcal vaccine 65+ (1 of 1 - PCV) 1994 Zoster Vaccine (1 of 2) 1994 Well Visit 65+ 2009 Covid-19 Vaccine (2 - season) 12/22/202312/2020 Influenza Vaccine (Season Ended) [address] MED[address] ADVANTAGE [facility] MEDICARE Address: [place] [id number] [place] [id number] MEDICARE ADVANTAGE [facility] MED[facility] Address: [address] [id number] [place] [address] MEDICARE ADVANTAGE [facility] MED[facility] Address: [address] [address] [place] [address] Care Teams Lens Blank Gauger Relationship Specialty Start Date End Date Rm Rothman MD [address] [place] [address] PCP - General 11/18/17
[2024-09-24 11:13] LABS: Bacteria Urine None Seen /hpf; Non Pathogenic Casts 0-2; Squamous Epithelial Cell Urine None Seen /hpf (Few); WBC Urine 0-5 /hpf (0-3)
[2024-09-24 11:27] LABS: Add Urine Microscopic? NO; Appearance Urine Clear (Clear); Bilirubin Urine Negative (Negative); Blood Urine Negative (Negative); Color Urine Yellow (Yellow); Glucose Urine UA Negative (Negative); Ketones Urine Negative (Negative); Leukocyte Esterase Ur Negative LEU/UL (Negative); Nitrate Urine Negative (Negative); Protein Urine Negative (Negative); Specific Grav Ur 1.007 (1.001-1.035); Urobilinogen Urine 0.2 mg/dL (<2.0)
== END 2024-09-24 10:12 | disposition home or self-care (01) ==
LOC: ANHLAB 10:11
PROVIDERS: PCP Family Medicine Adolescent Medicine; Visit Provider Nurse Practitioner Family
DX: R00.1 Bradycardia, unspecified (principal); R53.83 Other fatigue
CPT/HCPCS: 36415; 81003; 85025; 93005

== ENCOUNTER 2024-11-17 10:00 | Outpatient (CLI) | payer MEDICARE, SELFPAY ==
--- OUTSIDE RECORDS SUMMARY | 2024-11-17 10:14 | XMS_ITS | Referral Summary ---
Author Organization [facility] Address [address] [place] [address] Care Team Providers Care Chinese Language Professor Name Role Phone Rm Rothman MD Primary [...] on file Legal Sex Female 2:01 AM COMMUNICATION SIGNALS INTELLIGENCE Gender Identity Not on file Sexual Orientation Not on file Last Filed Vital Signs Vital Sign Reading Time Taken Comments Blood Pressure 152/75 03/06/2022 10:27 AM COMMUNICATION SIGNALS INTELLIGENCE Pulse 62 03/06/2022 10:27 AM COMMUNICATION SIGNALS INTELLIGENCE Temperature 36.7 C (98 F) 03/06/2022 10:27 AM COMMUNICATION SIGNALS INTELLIGENCE Respiratory Rate 18 03/06/2022 10:2 7 AM COMMUNICATION SIGNALS INTELLIGENCE Oxygen Saturation 97% 03/06/2022 10: 27 AM COMMUNICATION SIGNALS INTELLIGENCE Inhaled Oxygen Concentration - - Weight 71.1 kg (156 lb 12.8 oz) 022 10:27 AM COMMUNICATION SIGNALS INTELLIGENCE Height 157.5 cm (5' 2) 03/06/2022 10:2 7 AM COMMUNICATION SIGNALS INTELLIGENCE Body Mass Index 28.68 03/06/2022 10:27 AM COMMUNICATION SIGNALS INTELLIGENCE Plan of Treatment Not on file Insurance [facility] MEDICARE ADVANTAGE [facility] Address: [address] [address] [place] [address] [facility] MEDICARE ADVANTAGE [facility]IC[facility] Address[facility] [address] [address] [place] [address] UHC MEDICARE ADVANTAGE [facility] MEDIC[facility] Address: [address] [address] [place] [address] Care Teams Chinese Language Professor Relationship Specialty Start Date End Date Rm Rothman MD [address] [place] [address] PCP - General 11/18/17
--- OUTSIDE RECORDS SUMMARY | 2024-11-17 10:14 | XMS_ITS | Clinical Summary ---
Author Organization [facility] Address [address] [place] [address] Care Team Providers Care Pipeline Systems Operator Name Role Phone Rm Rothman MD Primary [...] on file Legal Sex Female 2:01 AM LIME BOILER Gender Identity Not on file Sexual Orientation Not on file Obstetrics History Para Term AB IAB SAB Ectopic Multiple Livin g Live Births 3 2 2 Date Outcome GA Total Labor Labor//3rd Weight Sex Type Anes PTL Bety A1 A5 Name Clin Term Term Last Filed Vital Signs Vital Sign Reading Time Taken Comments Blood Pressure 152/75 03/06/2022 10:27 AM LIME BOILER Pulse 62 03/06/2022 10:27 AM LIME BOILER Temperature 36.7 C (98 F) 03/06/2022 10:27 AM LIME BOILER Respiratory Rate 18 03/06/2022 10:2 7 AM LIME BOILER Oxygen Saturation 97% 03/06/2022 10: 27 AM LIME BOILER Inhaled Oxygen Concentration - - Weight 71.1 kg (156 lb 12.8 oz) 022 10:27 AM LIME BOILER Height 157.5 cm (5' 2) 03/06/2022 10:2 7 AM LIME BOILER Body Mass Index 28.68 03/06/2022 10:27 AM LIME BOILER Plan of Treatment Health Maintenance Due Date Last Done Comments Depression Screening 1944 Fall Risk Assessment 1944 Osteoporosis Screening-Bone Density Scan 1944 DTaP/Tdap/Td Vaccine (1 - Tdap) 08/21/1955 Hepatitis B Screening 1962 Pneumococcal vaccine 65+ (1 of 1 - PCV) 1994 Zoster Vaccine (1 of 2) 1994 Well Visit 65+ 2009 Covid-19 Vaccine (2 - season) 12/22/202312/2020 Influenza Vaccine (#1) 2024 Insurance MEDICARE ADVANTAGE MEDICARE ADVANTAGE MEDICARE ADVANTAGE Care Teams Pipeline Systems Operator Relationship Specialty Start Date End Date Rm Rothman MD [address] [place] [address] PCP - General 11/18/17
[2024-11-17 11:33] LABS: Hematocrit 40.0 % (37.0-47.0); Hemoglobin 13.5 g/dL (12.0-15.0); Immature Granulocyte Percent A 0.4 % (0-0.5); Lymphocytes Absolute Auto 2.18 K/mm3 (0.9-3.2); Mean Corpuscular HGB Conc 33.8 g/dl (32-36); Mean Corpuscular Hemoglobin 31.2 pg (26-34); Mean Corpuscular Volume 92.4 fl (80-100); Nucleated Red Blood Cells Absolute Auto 0.000 K/mm3 (0.0-0.012); Nucleated Red Blood Cells Perc 0.0 % (0.0-0.2); Platelet Count Result 219 k/mm3 (150-375); Red Blood Count 4.33 M/mm3 (4.2-5.4); White Blood Count 7.4 K/mm3 (4.5-10.0)
[2024-11-17 11:58] LABS: Hemoglobin A1C 6.0 % (<5.7)
[2024-11-17 12:01] LABS: Albumin Level 4.8 g/dL (3.5-5.1); Anion Gap 5 mmol/L (4-12); Blood Urea Nitrogen 11 mg/dL (7-17); Calcium 10.4 mg/dL (8.4-10.2); Carbon Dioxide 34 mmol/L (22-30); Chloride 91 mmol/L (98-107); Estimated Glomerular Filt Rate > 60; Glucose 98 mg/dL (65-110); Potassium 4.5 mmol/L (3.4-5.0); Sodium 130 mmol/L (137-145)
[2024-11-17 12:09] LABS: INR 1.0; Partial Thromboplastin Time 31.4 Seconds (22.3-36.8); Prothrombin Time 13.3 Seconds (11.1-14.7)
[2024-11-17 12:46] LABS: MRSA (PCR) NOT DETECTED (NOT DETECTE)
== END 2024-11-17 10:01 | disposition home or self-care (01) ==
LOC: ANHSURGERY 10:04
PROVIDERS: PCP Family Medicine Adolescent Medicine; Visit Provider Orthopaedic Surgery
DX: Z01.812 Encounter for preprocedural laboratory examination (principal); M17.12 Unilateral primary osteoarthritis, left knee
CPT/HCPCS: 80048; 80307; 82040; 83036; 85025; 85610; 85730; 87641

== ENCOUNTER 2024-12-01 02:33 | Day surgery (SDC) | payer MEDICARE, SELFPAY ==
[2024-11-17 10:18] VITALS: BP 149/58; PULSE 65; RESP 14; TEMP 36.8; O2SAT 98; BMI 28.0
--- NOTE | 2024-11-17 10:45 | PC.NURSE ---
Report to the Outpatient Waiting Room, entrance under the green pavilion located off [facility], at time __1000am on date __12/01/24 . Planned Procedure Time: ___1200pm .? Time changes happen often and if your time is changed the preop area will call you the afternoon before. - You and your visitor will be asked to self-screen and do not enter if you have any COVID symptoms. Please call surgeon if you need to reschedule. - A mask is optional within the hospital at this time. Patients may have clear liquids (water, carbonated beverages, clear teas, apple juice) until 3 hours prior to surgery with a maximum of 20 ounces. - No food from midnight until time of surgery and no smoking, or chewing tobacco (or any form of nicotine). No chewing gum, candy or mints. (0900am) Take only the following medications with a SIP of water on the morning of surgery: Metoprolol and Tylenol if needed DO NOT STOP ANY OF YOUR OTHER PRESCRIPTION MEDICATIONS PRIOR TO SURGERY EXCEPT THE FOLLOWING Hold all vitamins and supplements for 3 days per anesthesiologist.Date of last dose 11/27/24. Medications to discontinue per physician NONE Date to take last dose NONE Please no make-up, nail english, hairspray, perfume, deodorant, or body powder the day of surgery.? No jewelry (including any body piercings) or valuables the day of surgery, leave them at home.? Please take a shower or bath the night before, or the morning of, surgery with an antibacterial soap. HIBICLEANSE SCRUB DIRECTED. ? Wear comfortable, loose fitting clothing.? Bring walker, Cell phone, English Teacher, tennis shoes, and overnight bag, Robe - Jewelry must be removed prior to entering the operating room.? Rings and piercings that are not removed may be cut off. - The hospital will not accept responsibility for valuables.? - Please leave all valuables, including medications, at home the day of surgery. If you are going home after surgery, a licensed tractor driver must drive you home.? - NO public transportation without another adult if you receive anesthesia. - We recommend that an adult stay with you for 24 hours following discharge. - We also recommend that you do no drive, make important decision, drink alcoholic beverages, or take any drugs that were not prescribed by your health care provider for at least 24 hours after your discharge time. Follow any additional instructions given to you from your surgeon. Telephone instructions given to _ Patient and asked if any additional questions and then verbalized understanding. Patient advised to call surgeon office or pre surgery nurse liaison [phone] if any additional questions.
[2024-12-01] VITALS (19 sets, daily range): BP systolic 99–132; BP diastolic 43–80; PULSE 65–86; RESP 12–18; TEMP 36.3–37.3; O2SAT 91–98; BMI 28.2
--- NOTE | ~2024-12-01 | XR_ITS ---
EXAMINATION: [id number] DATE: 12/01/2024 14:08 CDT INDICATION: Left total knee arthroplasty TECHNIQUE: 2 views left knee FINDINGS: There is a left total knee arthroplasty in expected position. Subcutaneous gas with fluid and air in the joint and overlying skin denise are consistent with recent surgery. No evidence of pe riprosthetic fracture. IMPRESSION: 1. Recent left total knee arthroplasty. Reviewed, dictated and finalized at location A.
--- OUTSIDE RECORDS SUMMARY | 2024-12-01 02:36 | XMS_ITS | Clinical Summary ---
Author Organization [facility] Address [address] [place] [address] Care Team Providers Care Solder Deposit Operator Name Role Phone Rm Rothman MD [...] on file Legal Sex Female 2:01 AM RESTAURANT ASSISTANT MANAGER Gender Identity Not on file Sexual Orientation Not on file Obstetrics History Para Term AB IAB SAB Ectopic Multiple Livin g Live Births 3 2 2 Date Outcome GA Total Labor Labor//3rd Weight Sex Type Anes PTL Bety A1 A5 Name Clin Term Term Last Filed Vital Signs Vital Sign Reading Time Taken Comments Blood Pressure 152/75 03/06/2022 10:27 AM RESTAURANT ASSISTANT MANAGER Pulse 62 03/06/2022 10:27 AM RESTAURANT ASSISTANT MANAGER Temperature 36.7 C (98 F) 03/06/2022 10:27 AM RESTAURANT ASSISTANT MANAGER Respiratory Rate 18 03/06/2022 10:2 7 AM RESTAURANT ASSISTANT MANAGER Oxygen Saturation 97% 03/06/2022 10: 27 AM RESTAURANT ASSISTANT MANAGER Inhaled Oxygen Concentration - - Weight 71.1 kg (156 lb 12.8 oz) 022 10:27 AM RESTAURANT ASSISTANT MANAGER Height 157.5 cm (5' 2) 03/06/2022 10:2 7 AM RESTAURANT ASSISTANT MANAGER Body Mass Index 28.68 03/06/2022 10:27 AM RESTAURANT ASSISTANT MANAGER Plan of Treatment Health Maintenance Due Date [...] ADVANTAGE MEDICARE ADVANTAGE MEDICARE ADVANTAGE Care Teams Solder Deposit Operator Relationship Specialty Start Date End Date Rm Rothman MD [address] [place] [address] PCP - General 11/18/17
[2024-12-01] MEDS: ACETAMINOPHEN 500 MG TABLET 1000 MG PO (10:30)
--- NOTE | 2024-12-01 10:42 | WPDHPUPDATE1 ---
History and Physical Update Update Date/Time: 12/01/24 10:42 History and Physical has been reviewed, including an updated exam of the patient. There are NO changes in the patient's condition. Risks, benefits, and alternatives have been discussed and questions answered. Patient agrees to proceed with procedure.
[2024-12-01] MEDS: TRANEXAMIC ACID 1,000MG/ISO100 1,000 MG/100 ML BAG 200 MG IVPB (10:45)
[2024-12-01] MEDS: LACTATED RINGERS 1,000 ML 30 ML IV CONT ×2 (10:45→13:48)
[2024-12-01 11:09] LABS: Sodium 132 mmol/L (137-145)
--- NOTE | 2024-12-01 11:42 | WPDANESEPPF ---
Anes - Initial Pre Proc Eval Procedure: Operation Date: 12/01/24 12:00 Proposed Procedures p Left Total Knee Arthroplasty - Alok Segundo MD Date/Time: 12/01/24 11:42 Surgeon: Alok Segundo MD Pre Op Diagnosis: left knee djd Patient Data Age: 79 Gender: F Height: 1.56 m Weight: 68.8 kg Last Vital Signs Temp 36.8 C 11/17/24 10:18 Pulse 65 11/17/24 10:18 Resp 14 11/17/24 10:18 BP 149/58 H 11/17/24 10:18 Pulse Ox 98 11/17/24 10:18 O2 Del Method Room Air 11/17/24 10:18 Allergies Allergy/AdvReac Type Severity Reaction Status Date / Time alendronate sodium Allergy Intermediate ACHY Verified 12/01/24 11:00 SWELLING IN ALL AREAS AFFECTED BY ARTHRITIS Home Medications ?Medication ?Instructions ?Recorded ?Confirmed ?Type calcium carbonate (Calcium 500) 500 mg PO DAILY 03/06/21 11/19/24 History multivitamin 1 tablet PO DAILY 03/06/21 11/19/24 History omega 5-vue-ivr-fish oil 100 1 cap PO DAILY 03/06/21 11/19/24 History mg-160 mg-1,000 mg capsule (Fish Oil) Lactobacillus acidophilus 10 60,000 mmu cells PO DAILY 07/11/21 11/19/24 History billion cell capsule (Probiotic) cholecalciferol (vitamin D3) 50 50 mcg PO BID 07/11/21 11/19/24 History mcg (2,000 unit) capsule Beet root 2 cap PO DAILY 07/24/23 11/19/24 History amlodipine 5 mg tablet 5 mg PO DAILY #90 tabs 03/16/24 11/19/24 Rx hydrocortisone 2.5 % topical 1 applic topical QID PRN skin 07/13/24 11/19/24 History ointment irritation atorvastatin 40 mg tablet 40 mg PO HS #90 tabs 07/22/24 11/19/24 Rx metoprolol succinate 50 mg 50 mg PO DAILY #90 tabs 08/31/24 12/01/24 Rx tablet,extended release 24 hr hydrochlorothiazide 25 mg tablet 25 mg PO DAILY #90 tabs 09/29/24 11/19/24 Rx esomeprazole magnesium 40 mg See Rx Instructions .Route 10/19/24 11/19/24 Rx capsule,delayed release .COMPLEX #90 caps acetaminophen 500 mg tablet 500 mg PO Q4-6H PRN pain 11/17/24 11/19/24 History (Acetaminophen Extra Strength) chlorhexidine gluconate 4 % 1 applic topical ONCE #237 mL 11/17/24 11/19/24 Rx topical liquid (Hibiclens) Laboratory Tests 12/01/24 10:42 Sodium 132 L mmol/L (137-145) Blood Type A Positive Antibody Screen Pending Patient hx anesthesia problems: none Family hx anesthesia problems: none Results Review: All pre-operative results and documents have been reviewed as part of the pre-operative evaluation. [facility] Past Medical History Medical History Left knee DJD Right knee DJD History of breast cancer lumpectomy with radiation therapy Normal colonoscopy 10/05 Repeat 10/15 Age related osteoporosis Pure hypercholesterolemia, unspecified Impaired fasting glucose Gastro-esophageal reflux disease without esophagitis Essential (primary) hypertension Bilateral primary osteoarthritis of knee Knee effusion, right Surgical History Surgical History History of cholecystectomy (08/09/22) History of section, classical History of lumpectomy Lt breast which was benign Family History Family History Father Acute myocardial infarction Depression HLD (hyperlipidemia) Heart disease Other Diabetes mellitus Daughter Diabetes mellitus Breast cancer Other Colon polyp Hypertension Social History Social History Smoking packs per day: 1 Smoking cigarettes per day: 20.0 Years smoked: 13 Smoking pack-years: 13.00 Smoking status: Former smoker Tobacco type: cigarettes Second hand tobacco smoke exposure: No Smoking end date: 04/22/82 Additional smoking assessment comments: quit 1975 Alcohol intake: current Drinks per week: 2 Substance use: never Substance use type: does not use Lack of Transportation: No Lack of Food: Never True Current Housing: I Have Housing Concerned About Future Housing: No Difficulty Paying Gas/Electric Bills: No Difficulty Paying for Meds: No Currently Unemployed: No Education: Master's Degree or Higher Difficulty w/ Childcare or Family Care: No Living arrangements: with family Additional living arrangements comments: [place] Occupation/Education: retired Gender identity (if verbalized by the patient): Female Sexual Orientation (if Verbalized by the Patient): Straight or Heterosexual Spiritual care concerns: No Agree to blood products: Yes Anes - Eval Final PreProcedure Day of Procedure 12/01/24 11:42 Patient weight: overweight Heart: regular rate and rhythm Lungs: clear to auscultation Airway: Mallampati scale class II Neurological: alert and oriented Last oral intake: >/= 8 hours ASA classification: III Emergent: no Anesthetic plan: proceed Anesthesia type and monitoring: general LMA and standard monitoring Results Review: All pre-operative results and documents have been reviewed as part of the pre-operative evaluation. Informed Consent: The patient's anesthetic plan and its attendant risks and benefits were discussed with the patient/family/POA. Questions were solicited and answers provided to the satisfaction of the patient/family/POA.
[2024-12-01] MEDS: ceFAZolin 2 GM in SODIUM CHLORIDE 0.9% IV 50 ML 100 ML IVPB (12:45)
[2024-12-01] MEDS: SODIUM CHLORIDE 0.9% IV 37.7 ML, MORPHINE SULFATE INJ (*CRX) 2 MG, ROPivacaine HCL 1% 2... INFILTRATE (13:02)
[2024-12-01] MEDS: TRANEXAMIC ACID 1,000 MG/10 ML AMPUL 1000 MG IV PUSH (13:18)
--- NOTE | 2024-12-01 13:35 | P.OP_ITS ---
Procedure Note - Detailed Date of Procedure 12/01/24 Pre-op Diagnosis left knee djd Post-op Diagnosis Same Procedure Performed L TKA Surgeon Alok Segundo MD Anesthesia General Description of Procedure THE LEFT KNEE WAS PREPPED AND DRAPED IN THE STERILE FASHION. THERE WAS A 10 DEGREE FLEXION CONTRACTURE. A MIDLINE SKIN INCISION WAS MADE. A MEDIAL PARAPATELLAR ARTHROTOMY WAS MADE. THE PATELLA WAS EVERTED. AN INTRAMEDULLARY JEISON WAS PLACED IN THE FEMUR. A DISTAL FEMORAL CUT WAS MADE IN 5 DEGREES OF VA LGUS REMOVING APPROXIMATELY 9 MM OF BONE FROM THE DISTAL FEMUR. THE FEMUR WAS SIZED TO 62.5. A 62.5 FEMORAL CUTTING BLOCK WAS PLACED IN 3 DEGREES OF EXTERNAL ROTATION AND IN ALIGNMENT WITH MISSAEL'S LINE AND THE TRANSEPICONDYLAR AXIS. ANTERIOR POSTERIOR AND CHAMFER CUTS WERE MADE. THE CUTS WERE EXCELLENT. NEXT AN INTRAMEDULLARY CUTTING GUIDE WAS PLACED IN THE TIBIA. A TRANS TIBIAL CUT WAS MADE ALONG THE LONG AXIS OF THE TIBIA. APPROXIMATELY 10 MM OF BONE WAS REMOVED FROM THE HIGH SIDE OF THE TIBIA. THE TIBIA WAS THEN PLANED TO A SMOOTH SURFACE. POSTERIOR FEMORAL OSTEOPHYTES WERE REMOVED FROM THE FEMORAL CONDYLES. A 71 TIBIAL TRIAL WAS PLACED IN ALIGNMENT WITH THE 1/3 MEDIAL ASPECT OF THE TIBIAL TUBERCLE. THEN A 62.5 FEMORAL TRIAL COMPONENT WAS PLACED. BOTH HAD EXCELLENT FITS. EVENTUALLY A 10 CR POLYETHYLENE TRIAL COMPONENT WAS PLACED. THE KNEE WAS TAKEN THROUGH A RANGE OF MOTION. THE KNEE CAME OUT TO FULL EXTENSION. THERE WAS NO ABNORMAL TILT TO THE PATELLA. THERE WAS GOOD A/P AND VARUS/VALGUS STABILITY. THERE WAS NO EXCESSIVE ROLL BACK WITH FLEXION. THE TRIAL COMPONENTS WERE REMOVED. THEN A 62.5 FEMORAL COMPONENT AND 71 TIBIAL COMPONENT WITH A 1O CR POLYETHYLENE COMPONENT WERE CEMENTED INTO PLACE. ONCE THE CEMENT WAS HARD THE KNEE WAS TAKEN THROUGH A ROM AGAIN AND FOUND TO BE STABLE WITH NO PATELLA TILT NO EXCESSIVE ROLL BACK WITH FLEXION AND GOOD STABILITY WITH COMPLETE AND FULL EXTENSION. THE KNEE WAS IRRIGATED WITH STERILE BETADINE AND WATER FOR ABOUT 3 MINUTES. THE BLEEDERS WERE CAUTERIZED. THE ARTHROTOMY WAS REPAIRED WITH NUMBER 1 VICRYL. THE SUB CUTANEOUS LAYER WITH 2-0 VICRYL AND THE SKIN WITH DEWAYNE. THE WOUND WAS WASHED AND A STERILE DRESSING WAS APPLIED. PATIENT WAS EXTUBATED. Estimated Blood Loss -150.0 Pathology None sent Complications No immediate complications Condition Stable Disposition PACU
[2024-12-01] MEDS: fentaNYL CITRATE INJ (*CRX) 100 MCG/2 ML VIAL 25 MCG IV PUSH ×8 (14:02→16:40)
--- NOTE | 2024-12-01 17:33 | ADMGEN ---
This patient, Kortney Mota, was admitted to [facility] Surg Room 301-01. Patient/family oriented to hospital policies and general routines including ID bracelet, bed and alarms, visiting hours, pain management, procedures, bathroom and other care routines, personal items, smoking policy, room service/diet, and visiting hours. Information on how to activate the Rapid Response Team has been discussed. Patient/Family are encouraged to report perceived risks to care and to ask questions if they do not understand what they are told or what they should do.
[2024-12-01] MEDS: SENNA/DOCUSATE SODIUM TABLET 2 TAB PO (18:39)
[2024-12-01] MEDS: CELECOXIB 200 MG CAPSULE PO (18:39)
[2024-12-01] MEDS: FAMOTIDINE 20 MG TABLET PO (21:01)
[2024-12-01] MEDS: ATORVASTATIN 40 MG TABLET PO (21:01)
[2024-12-01] MEDS: ASPIRIN 325 MG ENTERIC TABLET PO (21:01)
[2024-12-01] MEDS: ceFAZolin 2 GM/D5W 50 ML 2 GM/50 ML BAG IVPB (21:42)
[2024-12-02 03:11] VITALS: BP 132/52; PULSE 74; RESP 14; TEMP 36.3; O2SAT 94
[2024-12-02] MEDS: ceFAZolin 2 GM/D5W 50 ML 2 GM/50 ML BAG IVPB ×2 (04:07→11:59)
[2024-12-02] MEDS: oxyCODONE/ACETAMINOPHEN (*CRX) 5-325 MG TABLET 1 TABLET PO ×2 (04:27→08:53)
[2024-12-02 07:01] LABS: Hematocrit 33.3 % (37.0-47.0); Hemoglobin 11.1 g/dL (12.0-15.0); Immature Granulocyte Percent A 0.5 % (0-0.5); Lymphocytes Absolute Auto 1.59 K/mm3 (0.9-3.2); Mean Corpuscular HGB Conc 33.3 g/dl (32-36); Mean Corpuscular Hemoglobin 31.6 pg (26-34); Mean Corpuscular Volume 94.9 fl (80-100); Nucleated Red Blood Cells Absolute Auto 0.000 K/mm3 (0.0-0.012); Nucleated Red Blood Cells Perc 0.0 % (0.0-0.2); Platelet Count Result 191 k/mm3 (150-375); Red Blood Count 3.51 M/mm3 (4.2-5.4); White Blood Count 9.5 K/mm3 (4.5-10.0)
[2024-12-02 07:15] LABS: Anion Gap 4 mmol/L (4-12); Blood Urea Nitrogen 9 mg/dL (7-17); Calcium 8.9 mg/dL (8.4-10.2); Carbon Dioxide 32 mmol/L (22-30); Chloride 94 mmol/L (98-107); Estimated CRCL calculation 72 ml/min; Estimated Glomerular Filt Rate > 60; Glucose 111 mg/dL (65-110); Potassium 4.1 mmol/L (3.4-5.0); Sodium 130 mmol/L (137-145)
[2024-12-02] MEDS: ONDANSETRON INJ 4 MG/2 ML VIAL IV PUSH ×2 (07:59→14:17)
[2024-12-02 08:53] VITALS: PULSE 70
[2024-12-02] MEDS: SENNA/DOCUSATE SODIUM TABLET 2 TAB PO (08:53)
[2024-12-02] MEDS: CELECOXIB 200 MG CAPSULE PO (08:53)
[2024-12-02] MEDS: ASPIRIN 325 MG ENTERIC TABLET PO (08:53)
[2024-12-02] MEDS: METOPROLOL SUCCINATE EXT REL 50 MG TABCR PO (08:53)
[2024-12-02] MEDS: FAMOTIDINE 20 MG TABLET PO (08:53)
[2024-12-02 10:56] VITALS: BP 125/51; PULSE 61; RESP 16; TEMP 36; O2SAT 96
--- NOTE | 2024-12-02 15:04 | PM.PNORT ---
Progress Note: A&P Assessment and Plan (1) Left knee DJD: Code(s): M17.12 - Unilateral primary osteoarthritis, left knee Status: Acute Assessment and Plan: POD 1 DOING WELL WITH GOOD PROGRESS IN PT. OK TO DC HOME F/U IN 3 WEEKS Subjective Subjective Date/Time Seen: 12/02/24 15:04 Interval history: POD 1 DOING WELL. GOOD PROGRESS WITH PT. NO CALF PAIN Exam Extrem: Other: VSS AFEBRILE DRESSING DRY NV INTACT NEG HOMANS SIGN, CALF AND THIGH SOFT NON TENDER Objective Data Vital Signs Vital Signs: Vital Signs - 24 hr 12/01/24 15:15 12/01/24 15:30 12/01/24 15:45 Temperature Pulse Rate 65 68 74 Respiratory Rate 14 14 14 Blood Pressure 105/46 L 99/48 L 104/44 L Pulse Oximetry 95 93 94 Oxygen Delivery Simple Face Mask Nasal Cannula Nasal Cannula Oxygen Flow Rate 2 2 2 12/01/24 16:00 12/01/24 16:30 12/01/24 17:00 Temperature Pulse Rate 80 72 65 Respiratory Rate 14 14 16 Blood Pressure 112/48 L 104/55 L 104/48 L Pulse Oximetry 96 96 96 Oxygen Delivery Nasal Cannula Nasal Cannula Nasal Cannula Oxygen Flow Rate 2 2 2 12/01/24 17:25 12/01/24 17:26 12/01/24 17:41 Temperature 36.3 C L 36.4 C Pulse Rate 65 72 74 Respiratory Rate 16 18 18 Blood Pressure 107/49 L 132/57 L 104/47 L Pulse Oximetry 97 95 93 Oxygen Delivery Nasal Cannula Oxygen Flow Rate 2 12/01/24 18:11 12/01/24 18:18 12/01/24 19:11 Temperature 36.6 C 36.6 C Pulse Rate 71 71 Respiratory Rate 18 17 Blood Pressure 114/47 L 114/48 L Pulse Oximetry 91 97 94 Oxygen Delivery Room Air Oxygen Flow Rate 12/01/24 20:00 12/01/24 23:06 12/02/24 03:11 Temperature 36.3 C L 36.3 C L Pulse Rate 74 74 Respiratory Rate 14 14 Blood Pressure 109/43 L 132/52 L Pulse Oximetry 93 94 Oxygen Delivery Room Air Oxygen Flow Rate 12/02/24 07:44 12/02/24 08:00 12/02/24 08:53 Temperature Pulse Rate 70 Respiratory Rate Blood Pressure Pulse Oximetry Oxygen Delivery Room Air Room Air Oxygen Flow Rate 12/02/24 10:56 Temperature 36.0 C L Pulse Rate 61 Respiratory Rate 16 Blood Pressure 125/51 L Pulse Oximetry 96 Oxygen Delivery Oxygen Flow Rate Intake/Output Intake/Output: Intake & Output 11/29/24 11/30/24 12/01/24 12/02/24 23:59 23:59 23:59 23:59 Intake Total 700 710 Balance 700 710 Meds/Results Medications: Active Medications Generic Name Dose Route Start Last Admin Trade Name Freq PRN Reason Stop Dose Admin Amlodipine Besylate 5 mg 12/02/24 09:00 12/02/24 08:53 Amlodipine Besylate 5 Mg Tablet PO 5 mg DAILY XOCHILT Administration Artificial Tears 1 drop 12/01/24 18:24 Artificial Tears Ophth Soln 15 Ml Bottle EACH EYE QID PRN Dry Eye(s) Aspirin 325 mg 12/01/24 21:00 12/02/24 08:53 Aspirin 325 Mg Enteric Tablet PO 325 mg Q12HR XOCHILT Administration Atorvastatin Calcium 40 mg 12/01/24 21:00 12/01/24 21:01 Atorvastatin 40 Mg Tablet PO 40 mg HS XOCHILT Administration Celecoxib 200 mg 12/01/24 17:26 12/02/24 08:53 Celecoxib 200 Mg Capsule PO 200 mg BIDWM XOCHILT Administration Diazepam 5 mg 12/01/24 17:26 Diazepam (*Crx) 5 Mg Tablet PO Q8H PRN Spasms Diphenhydramine HCl 25 mg 12/01/24 17:26 Diphenhydramine Hcl Inj 50 Mg/Ml Vial IV PUSH Q6H PRN Itching Famotidine 20 mg 12/01/24 21:00 12/02/24 08:53 Famotidine 20 Mg Tablet PO 20 mg Q12HR XOCHILT Administration Hydrochlorothiazide 25 mg 12/02/24 09:00 12/02/24 08:54 Hydrochlorothiazide 25 Mg Tablet PO 25 mg DAILY XOCHILT Administration Hydromorphone HCl 1 mg 12/01/24 17:26 Hydromorphone Hcl Inj (*Crx) 1 Mg/Ml Syr IV PUSH Q2H PRN Breakthrough Pain Rated 7-10 or NPO Hydromorphone HCl 0.5 mg 12/01/24 17:26 Hydromorphone Hcl Inj (*Crx) 1 Mg/Ml Syr IV PUSH Q2H PRN Breakthrough Pain Rated 4-6 or NPO Ibuprofen 800 mg in 200 mls @ 400 mls/hr 12/01/24 17:26 Caldolor 800 Mg/200 Ml IVPB Q6H PRN Breakthrough Pain Rated 1-3 or NPO Metoprolol Succinate 50 mg 12/02/24 09:00 12/02/24 08:53 Metoprolol Succinate Ext Rel 50 Mg Tabcr PO 50 mg DAILY XOCHILT Administration Naloxone HCl 0.1 mg 12/01/24 17:26 Naloxone Hcl 0.4 Mg/Ml Vial IV PUSH Q2M PRN Opiate Reversal Ondansetron HCl 4 mg 12/01/24 17:26 12/02/24 14:17 Ondansetron Inj 4 Mg/2 Ml Vial IV PUSH 4 mg Q4H PRN Administration Nausea And Vomiting Oxycodone/Acetaminophen 1 tablet 12/01/24 17:26 12/02/24 08:53 Oxycodone/Acetaminophen (*Crx) 5-325 Mg Tablet PO 1 tablet Q4H PRN Administration Pain Rated 4-6 Oxycodone/Acetaminophen 1 tab 12/01/24 17:26 Oxycodone/Acetaminophen (*Crx) 10-325 Mg Tablet PO Q6H PRN Pain Rated 7-10 Polyethylene Glycol 17 gm 12/02/24 09:00 12/02/24 08:53 Polyethylene Glycol 3350 17 Gm Powd.Pack PO 17 gm QAM XOCHILT Administration Senna/Docusate Sodium 2 tab 12/01/24 17:26 12/02/24 08:53 Senna/Docusate Sodium Tablet PO 2 tab BID XOCHILT Administration Radiology Results: ITS Impressions Knee X-Ray 12/01/24 14:08 IMPRESSION: 1. Recent left total knee arthroplasty. Labs Labs: Laboratory Results - last 24 hr 12/02/24 06:41 WBC 9.5 RBC 3.51 L Hgb 11.1 L Hct 33.3 L MCV 94.9 MCH 31.6 MCHC 33.3 RDW 12.2 Plt Count 191 MPV 8.8 Immature Gran % (Auto) 0.5 Neut % (Auto) 74.0 H Lymph % (Auto) 16.7 L Stephenson % (Auto) 7.7 Eos % (Auto) 0.5 Baso % (Auto) 0.6 Lymph # (Auto) 1.59 Stephenson # (Auto) 0.7 H Eos # (Auto) 0.1 Baso # (Auto) 0.1 Abs Immat Gran (auto) 0.05 H Absolute Neuts (auto) 7.0 H Absolute Nucleated RBC 0.000 Nucleated RBC % 0.0 Sodium 130 L Potassium 4.1 Chloride 94 L Carbon Dioxide 32 H Anion Gap 4 BUN 9 Creatinine 0.46 L Estim Creat Clear Calc 72 Estimated GFR > 60 Glucose 111 H Calcium 8.9
[2024-12-02 15:11] VITALS: BP 124/49; PULSE 65; RESP 18; TEMP 36; O2SAT 96
== END 2024-12-02 15:50 | disposition home health service (06) ==
LOC: ANHSURGERY 09:49 → ANH3MEDSUR 17:28
PROVIDERS: Anesthesiology; PCP Family Medicine Adolescent Medicine; Visit Provider Orthopaedic Surgery
PROC: (CPT 27447; principal; 2024-12-01 12:00)
DX: M17.12 Unilateral primary osteoarthritis, left knee (principal); M25.762 Osteophyte, left knee; M81.0 Age-related osteoporosis without current pathological fracture; E78.00 Pure hypercholesterolemia, unspecified; R73.01 Impaired fasting glucose; K21.9 Gastro-esophageal reflux disease without esophagitis; I10 Essential (primary) hypertension; Z98.890 Other specified postprocedural states; Z90.49 Acquired absence of other specified parts of digestive tract; Z87.891 Personal history of nicotine dependence; Z92.3 Personal history of irradiation; Z85.3 Personal history of malignant neoplasm of breast; Z80.3 Family history of malignant neoplasm of breast; Z83.719 Family history of colon polyps, unspecified; Z82.49 Family history of ischemic heart disease and other diseases of the circulatory system
CPT/HCPCS: 27447; 36415; 73560; 80048; 84295; 85025; 86850; 86900; 86901; 97110; 97116; 97161; 97165; 97530; J0690; A9270; C1713; C1776; J0166; J1885; J2003; J2270; J2405; J2704; J2795; J3010; J3373; J7120